=== PATIENT | male | born 1960 | race Caucasian/White ===

== ENCOUNTER 2016-12-15 15:01 | Inpatient (IN) ==
[2016-12-15 15:23] LABS: Basophils # 0.1 K/mcL (0.0-0.2); Basophils % 0.9 %; Eosinophils # 0.1 K/mcL (0.0-0.6); Eosinophils % 2.4 %; Hemoglobin 17.4 g/dL (12.9-16.9); Immature Granulocytes % 0.5 % (0-4); Lymphocytes # 1.8 K/mcL (0.6-4.6); Lymphocytes % 30.4 %; Mean Corpuscular HGB Conc 33.5 g/dL (31.6-35.5); Mean Corpuscular Hemoglobin 27.9 pg (28.0-33.3); Mean Corpuscular Volume 83.3 fL (83.0-100.0); Mean Platelet Volume 10.2 fL (9.4-12.4); Monocytes # 0.7 K/mcL (0.0-1.3); Monocytes % 11.2 %; Neutrophils # 3.2 K/mcL (1.6-8.9); Platelet Count 225 K/mcL (140-400); Red Blood Count 6.24 M/mcL (4.19-5.50); Red Cell Distribution Width 14.4 % (11.5-14.5); Segmented Neutrophils % 54.6 %
[2016-12-15 15:32] LABS: Prothrombin Time 10.5 Seconds (9.4-12.1)
[2016-12-15 15:36] LABS: BUN/Creatinine Ratio 10 (6-26); Blood Urea Nitrogen 13 mg/dL (8-26); Calcium 9.2 mg/dL (8.6-10.8); Carbon Dioxide 27 mEq/L (19-29); Chloride 103 mEq/L (98-109); Glucose 91 mg/dL (70-99); Osmolality,Calculated 288 (280-300); Potassium 4.2 mEq/L (3.5-4.5); Sodium 139 mEq/L (136-145); eGFR For African Americans > 60 (> 60); eGFR For Non-African Americans 57 (> 60)
[2016-12-15 15:37] LABS: Ethanol < 10 mg/dL (0-10)
--- NOTE | 2016-12-15 15:56 | Emergency Department Note ---
Disposition Clinical Impression: Dizziness, Paresthesias Disposition: Admitted As Inpatient Neuro HPI - General Chief Complaint: ED Neuro Symptoms/Deficit Stated Complaint: right sided weakness/tingling/numbness Time Seen by Provider: 12/15/16 15:08 Source: patient Limitations: no limitations Nursing Notes Reviewed: Yes Vital Signs Reviewed: Yes - History of Present Illness HPI Narrative: Transferred from the [place] for concern of stroke. Patient presents for evaluation of dizziness, paresthesias, right-sided deficits. Patient has previous history of stroke with right-sided deficits. Has been experiencing dizzy episodes that he is unable to relate to any specific time are associated or alleviating symptoms. States constant for the last week however symptoms now begun to resolve upon arrival in the emergency department. Paresthesias are described as all over most significant in his hands. Patient states not related to anxiety or depression. Patient states that his dizziness is worse with the shaking of his head although not specific side. No new focal deficits on exam. Patient does have decreased strength in the upper and lower right extremities with slightly abnormal finger to nose on the right. Onset of symptoms was one week ago. Patient takes Plavix daily but does not take his aspirin for the last 2 years secondary to "not having a reason to". - Related Data Home Medications: Home Medications Medication Instructions Recorded Confirmed Alfuzosin HCl [Uroxatral] 10 mg PO HS 12/15/16 12/15/16 Ascorbate Calcium [Vitamin C] 1,000 mg PO DAILY 12/15/16 12/15/16 Finasteride [Proscar] 5 mg PO HS 12/15/16 12/15/16 HYDROcodone/Acet 5/325 mg [[place] 1 tab PO TID PRN 12/15/16 12/15/16 5-325 mg] Meclizine HCl [Verticalm] 25 mg PO TID 12/15/16 12/15/16 [place]-3/Dha/Epa/Fish Oil [Fish Oil 2,000 mg PO DAILY 12/15/16 12/15/16 1,000 mg Softgel] Sertraline [Zoloft] 100 mg PO DAILY 12/15/16 12/15/16 Sildenafil Citrate [Viagra] 100 mg PO AD PRN 12/15/16 12/15/16 Testosterone Cypionate 200 mg IM Q10D 12/15/16 12/15/16 Zolpidem [Ambien] 10 mg PO HS 12/15/16 12/15/16 hydrOXYzine pamoate [HydrOXYzine 50 mg PO HS PRN 12/15/16 12/15/16 Pamoate] Allergies/Adverse Reactions: Allergies Allergy/AdvReac Type Severity Reaction Status Date / Time morphine Allergy See Verified 12/15/16 15:28 Comments tamsulosin Allergy See Verified 12/15/16 15:28 Comments Review of Systems: CONSTITUTIONAL: No weight loss, fever, chills, weakness or fatigue. HEENT: Eyes: No visual changes. Ears, Nose, Throat: No hearing loss, difficulty talking or unable to swallow. SKIN: No rash or itching. CARDIOVASCULAR: No chest pain, chest pressure or chest discomfort. No palpitations or edema. RESPIRATORY: No shortness of breath, cough or sputum. GASTROINTESTINAL: No anorexia, nausea, vomiting or diarrhea. No abdominal pain or blood. GENITOURINARY: No burning on urination or hematuria. NEUROLOGICAL: Dizziness and paresthesias to the upper extremities No headache, syncope, paralysis, ataxia.. No change in bowel or bladder control. MUSCULOSKELETAL: No muscle pain, back pain, joint pain or stiffness. All systems ED: reviewed and negative except as stated. Past Medical History - Past Medical History Medical history: Reports: CVA, hyperlipidemia, hypertension, TIA Psychiatric history: Reports: depression, other - Social History Smoking Status: Former smoker Smokeless Tobacco Status: No Alcohol use: Reports: none Drug use: Reports: none Physical Exam General appearance: NAD, conversant Eyes: anicteric sclerae, moist conjunctivae; PERRL HENT: Atraumatic; oropharynx clear with moist mucous membranes and no mucosal ulcerations Neck: Normal inspection; Trachea midline; FROM, supple Lungs: CTA, with normal respiratory effort and no intercostal retractions CV: RRR, no MRGs Abdomen: Soft, non-tender; no rebound or gaurding Extremities: No peripheral edema or extremity lymphadenopathy Skin: Normal temperature; no rash, ulcers or lesions Psych: Appropriate mood and affect Neuro: alert and oriented to person, place and time - General Limitations: no limitations General appearance: alert, in no apparent distress - Expanded Neurological Exam Speech: Present: fluid speech Cranial nerves: EOM function (II, III, IV, ): Normal, facial sensation (V): Normal, facial palsy (VII): Normal, gag reflex (IX): Normal, spinal accessory function (XI): Normal, tongue deviation (XII): Normal Cerebellar function: finger to nose: Abnormal Right, heel to kelley: Abnormal Right Cerebellar function: normal gait Motor strength - LUE: 5/5 Motor strength - RUE: 4/5 Motor strength - LLE: 5/5 Motor strength - RLE: 4/5 Sensory exam upper extremity: light touch: Normal Sensory exam lower extremity: light touch: Normal Coma Scale Eye Opening: Spontaneous Coma Scale Motor Response: Obeys Commands Coma Scale Verbal Response: Oriented Coma Scale Total: 15 - Psychiatric Psychiatric exam: Present: flat affect - Skin Skin exam: Present: warm, dry, intact Course - Consultations Consultation #1: Discussed with hospitalist. Patient accepted for further stroke workup and rule out Vital Signs Temperature 98.2 F 12/15/16 15:16 Pulse Rate 78 12/15/16 15:16 Respiratory Rate 16 12/15/16 15:16 Blood Pressure 155/86 12/15/16 15:16 O2 Sat by Pulse Oximetry 96 12/15/16 15:16 Temperature 98.8 F 12/15/16 19:10 Pulse Rate 84 12/15/16 19:10 Respiratory Rate 17 12/15/16 19:10 Blood Pressure 183/65 12/15/16 19:10 O2 Sat by Pulse Oximetry 94 12/15/16 19:10 Oxygen Delivery Oxygen Delivery Room Air Neuro Symptoms/Deficit - Lab Data Result diagrams: 12/15/16 15:13 12/15/16 15:13 Lab Results 12/15/16 12/15/16 12/15/16 Range/Units 15:13 15:13 15:13 WBC 5.9 (4.3-11.1) K/mcL RBC 6.24 H (4.19-5.50) M/mcL Hgb 17.4 H (12.9-16.9) g/dL Hct 52.0 H (37.5-50.1) % MCV 83.3 (83.0-100.0) fL MCH 27.9 L (28.0-33.3) pg MCHC 33.5 (31.6-35.5) g/dL RDW 14.4 (11.5-14.5) % Plt Count 225 (140-400) K/mcL MPV 10.2 (9.4-12.4) fL Immature Gran % 0.5 (0-4) % Seg Neutrophils % 54.6 % Lymphocytes % 30.4 % Monocytes % 11.2 % Eosinophils % 2.4 % Basophils % 0.9 % Neutrophils # 3.2 (1.6-8.9) K/mcL Lymphocytes # 1.8 (0.6-4.6) K/mcL Monocytes # 0.7 (0.0-1.3) K/mcL Eosinophils # 0.1 (0.0-0.6) K/mcL Basophils # 0.1 (0.0-0.2) K/mcL PT 10.5 (9.4-12.1) Seconds INR 1.0 Sodium 139 (136-145) mEq/L Potassium 4.2 (3.5-4.5) mEq/L Chloride 103 (98-109) mEq/L Carbon Dioxide 27 (19-29) mEq/L BUN 13 (8-26) mg/dL Creatinine 1.31 H (0.72-1.25) mg/dL Est GFR ( Amer) > 60 (> 60) Est GFR (Non-Af Amer) 57 L (> 60) BUN/Creatinine Ratio 10 (6-26) Glucose 91 (70-99) mg/dL Calculated Osmolality 288 (280-300) Calcium 9.2 (8.6-10.8) mg/dL Troponin I (0-0.03) ng/mL Urine Color (Yellow) Urine Clarity (Clear) Urine pH (5.0-8.0) pH Units Ur Specific [place] (1.010-1.025) Urine Protein (Neg-Trace) mg/dL Urine Glucose (UA) (Normal) mg/dL Urine Ketones (Negative) mg/dL Urine Blood (Negative) Urine Nitrite (Negative) Urine Bilirubin (Negative) Urine Urobilinogen (Normal) mg/dL Ur Leukocyte Esterase (Negative) Urine Microscopic RBC (0-3) per hpf Urine Microscopic WBC (0-3) per hpf Ur Squamous Epith Cells (None-Few) per lpf Urine Bacteria (None-Few) per hpf Hyaline Casts (None-Few) per lpf Ur Culture Indicated? (NO) Urine Opiates Screen (Sroeix=251) ng/mL Ur Barbiturates Screen (Xmkrbl=838) ng/mL Ur Phencyclidine Scrn (Cutoff=25) ng/mL Ur Amphetamines Screen (Shenwu=3987) ng/mL U Benzodiazepines Scrn (Tdqbqq=290) ng/mL Urine Cocaine Screen (Cutoff= 300) ng/mL U Marijuana (THC) Screen (Cutoff = 50) ng/mL Ethyl Alcohol < 10 (0-10) mg/dL 12/15/16 12/15/16 12/15/16 Range/Units 15:13 16:33 16:33 WBC (4.3-11.1) K/mcL RBC (4.19-5.50) M/mcL Hgb (12.9-16.9) g/dL Hct (37.5-50.1) % MCV (83.0-100.0) fL MCH (28.0-33.3) pg MCHC (31.6-35.5) g/dL RDW (11.5-14.5) % Plt Count (140-400) K/mcL MPV (9.4-12.4) fL Immature Gran % (0-4) % Seg Neutrophils % % Lymphocytes % % Monocytes % % Eosinophils % % Basophils % % Neutrophils # (1.6-8.9) K/mcL Lymphocytes # (0.6-4.6) K/mcL Monocytes # (0.0-1.3) K/mcL Eosinophils # (0.0-0.6) K/mcL Basophils # (0.0-0.2) K/mcL PT (9.4-12.1) Seconds INR Sodium (136-145) mEq/L Potassium (3.5-4.5) mEq/L Chloride (98-109) mEq/L Carbon Dioxide (19-29) mEq/L BUN (8-26) mg/dL Creatinine (0.72-1.25) mg/dL Est GFR ( Amer) (> 60) Est GFR (Non-Af Amer) (> 60) BUN/Creatinine Ratio (6-26) Glucose (70-99) mg/dL Calculated Osmolality (280-300) Calcium (8.6-10.8) mg/dL Troponin I 0.01 (0-0.03) ng/mL Urine Color Yellow (Yellow) Urine Clarity Clear (Clear) Urine pH 7.0 (5.0-8.0) pH Units Ur Specific [place] 1.016 (1.010-1.025) Urine Protein Negative (Neg-Trace) mg/dL Urine Glucose (UA) Normal (Normal) mg/dL Urine Ketones Negative (Negative) mg/dL Urine Blood Negative (Negative) Urine Nitrite Negative (Negative) Urine Bilirubin Negative (Negative) Urine Urobilinogen Normal (Normal) mg/dL Ur Leukocyte Esterase Small H (Negative) Urine Microscopic RBC 0-3 (0-3) per hpf Urine Microscopic WBC 0-3 (0-3) per hpf Ur Squamous Epith Cells Few (None-Few) per lpf Urine Bacteria Few (None-Few) per hpf Hyaline Casts None Seen (None-Few) per lpf Ur Culture Indicated? YES A (NO) Urine Opiates Screen Negative (Bwrkjb=218) ng/mL Ur Barbiturates Screen Negative (Vmsvqk=165) ng/mL Ur Phencyclidine Scrn Negative (Cutoff=25) ng/mL Ur Amphetamines Screen Negative (Pmtaev=0717) ng/mL U Benzodiazepines Scrn Negative (Sxrbmt=729) ng/mL Urine Cocaine Screen Negative (Cutoff= 300) ng/mL U Marijuana (THC) Screen Negative (Cutoff = 50) ng/mL Ethyl Alcohol (0-10) mg/dL TPA Checklist - LKW: 3-4.5 hrs Add. Warnings/Precautions Patient/family understanding: The patient/family members have been counseled and understood the risk, benefit , and alternatives of treatment. Attestation Statement - Attestation Attestation: I examined this patient and my medical decision-making was reviewed with the PHARMACY ASSOCIATE/PA/Advanced Practice Nurse/Resident Physician. I agree with the documented findings, disposition and treatment plan as described except to the extent set forth below. In summary 56-year-old male patient presenting with TIA symptoms. He had tingling and numbness on his right side which is subsequently resolved. CT of the head and neck shows old stroke consistent with his history of having previous strokes. Given risk of CVA we will proceed with admission and evaluation by neurology. Patient was stable at the time of admission. He has no neurological deficits beyond his baseline deficits at the time of admission. Vital stable at the time of admissions.
[2016-12-15 16:46] LABS: Bilirubin,Urine Negative (Negative); Blood,Urine Negative (Negative); Clarity,Urine Clear (Clear); Color,Urine Yellow (Yellow); Glucose,Urine (UA) Normal (Normal); Ketones,Urine Negative (Negative); Leukocyte Esterase,Urine Small (Negative); Nitrite,Urine Negative (Negative); Protein,Urine Negative (Neg-Trace); Specific Gravity,Urine 1.016 (1.010-1.025); Urobilinogen,Urine Normal (Normal)
[2016-12-15 16:48] LABS: Amphetamine Screen,Urine Negative ng/mL (Cutoff=1000); Bacteria,Urine Few per hpf (None-Few); Barbiturate Screen,Urine Negative ng/mL (Cutoff=200); Benzodiazepines Screen,Urine Negative ng/mL (Cutoff=200); Cannabinoid Screen,Urine Negative ng/mL (Cutoff = 50); Cocaine Screen,Urine Negative ng/mL (Cutoff= 300); Hyaline Casts,Urine None Seen per lpf (None-Few); Opiate Screen,Urine Negative ng/mL (Cutoff=300); Phencyclidine Screen,Urine Negative ng/mL (Cutoff=25); RBC,Urine 0-3 per hpf (0-3); Squamous Epithelial Cell,Urine Few per lpf (None-Few); WBC,Urine 0-3 per hpf (0-3)
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
[2016-12-15] MEDS ORDERED: Naloxone 0.4 MG/ML INJ IVP PRN (20:50)
[2016-12-15] MEDS ORDERED: Acetaminophen 325 MG TABLET PO PRN (20:50)
[2016-12-15] MEDS ORDERED: *HR* HYDROcodone/Acet 5/325 mg TABLET PO PRN ×2 (20:52→21:18)
[2016-12-15] MEDS ORDERED: hydrOXYzine pamoate 25 MG CAPSULE PO SCH (21:00)
[2016-12-15] MEDS ORDERED: (Alfuzosin Hcl [Uroxatral] 10 MG) PO SCH (21:00)
[2016-12-15] MEDS ORDERED: Finasteride 5 MG TABLET PO SCH (21:00)
[2016-12-15] MEDS ORDERED: *HR* LORazepam 2 MG/ML VIAL IVP PRN (21:02)
[2016-12-16 04:58] LABS: Basophils % 0.6 %; Eosinophils # 0.2 K/mcL (0.0-0.6); Eosinophils % 3.1 %; Hematocrit 50.1 % (37.5-50.1); Hemoglobin 16.3 g/dL (12.9-16.9); Immature Granulocytes % 0.5 % (0-4); Lymphocytes % 30.2 %; Mean Corpuscular HGB Conc 32.5 g/dL (31.6-35.5); Mean Corpuscular Hemoglobin 27.5 pg (28.0-33.3); Mean Corpuscular Volume 84.6 fL (83.0-100.0); Mean Platelet Volume 10.8 fL (9.4-12.4); Monocytes # 0.8 K/mcL (0.0-1.3); Monocytes % 12.5 %; Neutrophils # 3.5 K/mcL (1.6-8.9); Platelet Count 227 K/mcL (140-400); Red Blood Count 5.92 M/mcL (4.19-5.50); Red Cell Distribution Width 14.4 % (11.5-14.5); Segmented Neutrophils % 53.1 %
[2016-12-16 05:22] LABS: BUN/Creatinine Ratio 11 (6-26); Blood Urea Nitrogen 15 mg/dL (8-26); Calcium 8.9 mg/dL (8.6-10.8); Carbon Dioxide 28 mEq/L (19-29); Chloride 104 mEq/L (98-109); Chol/HDL Ratio 4.7 (0-4.9); Cholesterol 146 mg/dL (< 200); Glucose 82 mg/dL (70-99); HDL Cholesterol 31 mg/dL (40-59); LDL Cholesterol,Calculated 61 mg/dL (0-99); Osmolality,Calculated 290 (280-300); Potassium 4.2 mEq/L (3.5-4.5); Sodium 140 mEq/L (136-145); Triglycerides 269 mg/dL (< 150); eGFR For African Americans > 60 (> 60); eGFR For Non-African Americans 53 (> 60)
[2016-12-16 05:56] LABS: Folate 8.8 ng/mL (7.0-31.4)
[2016-12-16] MEDS ORDERED: *HR* Heparin 5,000 UNIT/ML VIAL SQ SCH (06:00)
[2016-12-16] MEDS ORDERED: amLODIPine 5 MG TABLET PO SCH (09:00)
[2016-12-16] MEDS ORDERED: hydrOXYzine pamoate 25 MG CAPSULE PO PRN (12:03)
--- NOTE | 2016-12-16 14:01 | Discharge Summary ---
Date of Encounter: 12/16/16 Time of Encounter: 13:59 - Discharge Diagnosis (1) Dizziness Priority: Primary Status: Acute (2) BPH (benign prostatic hyperplasia) Priority: Secondary Status: Chronic Qualifiers: Lower urinary tract symptom presence: symptoms absent Qualified Code(s): N40.0 - Benign prostatic hyperplasia without lower urinary tract symptoms (3) History of CVA (cerebrovascular accident) Priority: Secondary Status: Chronic (4) Hypertension Priority: Secondary Status: Chronic Qualifiers: Hypertension type: essential hypertension Qualified Code(s): I10 - Essential (primary) hypertension (5) Paresthesias Priority: Secondary Status: Acute - Discharge Medications Prescriptions: amLODIPine [Norvasc] 5 mg PO DAILY #30 tablet Atorvastatin [Lipitor] 40 mg PO HS #30 tablet Clopidogrel [Plavix] 75 mg PO DAILY #30 tablet Home Medications: Alfuzosin HCl [Uroxatral] 10 mg PO HS 12/15/16 [History] Ascorbate Calcium [Vitamin C] 1,000 mg PO DAILY 12/15/16 [History] Finasteride [Proscar] 5 mg PO HS 12/15/16 [History] HYDROcodone/Acet 5/325 mg [[place] 5-325 mg] 1 tab PO TID PRN 12/15/16 [History] Meclizine HCl [Verticalm] 25 mg PO TID 12/15/16 [History] [place]-3/Dha/Epa/Fish Oil [Fish Oil 1,000 mg Softgel] 2,000 mg PO DAILY 12/15/16 [History] Sertraline [Zoloft] 100 mg PO DAILY 12/15/16 [History] Sildenafil Citrate [Viagra] 100 mg PO AD PRN 12/15/16 [History] Testosterone Cypionate 200 mg IM Q10D 12/15/16 [History] Zolpidem [Ambien] 10 mg PO HS 12/15/16 [History] hydrOXYzine pamoate [HydrOXYzine Pamoate] 50 mg PO HS PRN 12/15/16 [History] Atorvastatin [Lipitor] 40 mg PO HS #30 tablet 12/16/16 [Rx] Clopidogrel [Plavix] 75 mg PO DAILY #30 tablet 12/16/16 [Rx] amLODIPine [Norvasc] 5 mg PO DAILY #30 tablet 12/16/16 [Rx] Allergies/Adverse Reactions: Allergies morphine Allergy (Verified 12/16/16 12:05) see comment tamsulosin Adverse Reaction (Verified 12/16/16 12:05) Dizziness Procedures/tests Complete & Pending: Procedures Performed prior 72 hours Category Date Time Status EV echocardiogram Routine Y 12/16/16 20:53 Completed - Notes to Outpatient Provider Consider open MRI of the brain for the patient for further evaluation as outpatient. Date of admission: 12/15/16 19:51 [facility] care physician: [facility] Consults: 12/15/16 20:51 Consult to Occupational Therapy [CONS] Routine Comment: Evaluate, develop and implement POC Reason for Consult: dizziness, h/o CVA, may need rehab or walker/cane upon DC Consult to Physical Therapy [CONS] Routine Comment: Evaluate, develop and implement POC Reason for Consult: dizziness, h/o CVA, may need rehab or walker/cane upon DC Consult to Creative Consultant [CONS] Routine Reason for SW Consult: dizziness, h/o CVA, may need rehab or walker/cane upon DC Discharging clinician: Bryant Solano Anticipated date of discharge: 12/16/16 - Patient Status Disposition: Home Health Service Condition: Fair Functional capacity at discharge: uses cane/walker Overall status at discharge: patient is progressing back to baseline - Discharge Instructions Instructions: Amlodipine (By mouth), Atorvastatin (By mouth), Clopidogrel (By mouth), Transient Ischemic Attack (DC), Ischemic Stroke (DC), Chronic Hypertension (DC), Hyperlipidemia (DC) Follow [facility]: [facility] [Primary Care Provider[facility] - 12/23/16 12:30 pm (In 1-2 weeks) - Diet and Activity Activity: as per physical therapy Diet: low fat, low cholesterol, low salt diet Hospital course: Mr. 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 He also had transient blurring of vision about 2 days back. He was hospitalized for further evaluation and CT scan of his head was done which did not show any acute stroke. MRI of the brain was recommended. However patient was unable to proceed with that despite being told that Ativan was available for him to help him with his claustrophobia. Patient's symptoms have now completely subsided. At this time, he is clinically stable for discharge and will be discharged on Plavix and statin. 2-D echocardiogram was done and did not show any PFO. Patient does have normal ejection fraction. He does need an MRI of the brain and an open MRI can be arranged for him as outpatient. He was evaluated by physical therapy and recommended placement to skilled rehabilitation. However if he does not wish to wait in the hospital for this to be arranged. As such she will be discharged on home health with home physical therapy. - Time Spent with Patient Total time spent providing and/or coordinating discharge services: Greater than 30 minutes (35 min) - Constitutional Vitals: Temp Pulse Resp BP Pulse Ox 98.5 F 58 17 142/90 97 12/16/16 07:00 12/16/16 07:00 12/16/16 07:00 12/16/16 07:00 12/16/16 07:00 General appearance: Present: cooperative, A&O X 3, pleasant, no acute distress, obese, answers questions appropriately - Neck Neck exam general surgery: Present: supple, trachea midline. Absent: lymphadenopathy - Respiratory Respiratory exam: Present: CTAB. Absent: accessory muscle use, rales, rhonchi, wheezes - Cardiovascular Cardiovascular exam: Present: RRR, +S1, +S2. Absent: diastolic murmur, gallop, rubs, systolic murmur - GI/Abdominal GI/Abdominal exam: Present: normal bowel sounds, soft, no peritoneal signs. Absent: distended, tenderness - Extremities Exam Extremities exam: Present: warm, radial pulses palpable and symetrical. Absent : calf tenderness, cyanotic, pedal edema - Neurological Exam Neurological exam: Present: CN II-XII intact, oriented X3, no focal deficits. Absent: facial droop, speech deficit Additional comments: 4/5 strength in right upper and lower extremities which is chronic
--- NOTE | 2016-12-16 14:11 | Physician Discharge Referral ---
Home Health/Hosp Referral Info Transfer to: Home Health Provider in Charge Post Discharge: PCP - Diagnosis (1) Dizziness Priority: Primary Status: Acute (2) BPH (benign prostatic hyperplasia) Priority: Secondary Status: Chronic (3) History of CVA (cerebrovascular accident) Priority: Secondary Status: Chronic (4) Hypertension Priority: Secondary Status: Chronic (5) Paresthesias Priority: Secondary Status: Acute - Respiratory Orders Smoking Cessation: Smoking cessation has been advised. For more information, call the [place] Tobacco Quit Line at 8-853-PRKG-NOW. - Diet/Nutrition Diet/Nutrition Orders: Cardiac - Activity Activity Orders: Walker - Services Needed Following services are medically necessary services: Physical Therapy, Occupational Therapy - Transfer Medications Prescriptions: Atorvastatin [Lipitor] 40 mg PO HS #30 tablet Clopidogrel [Plavix] 75 mg PO DAILY #30 tablet Home Medications: Alfuzosin HCl [Uroxatral] 10 mg PO HS 12/15/16 [History] Ascorbate Calcium [Vitamin C] 1,000 mg PO DAILY 12/15/16 [History] Finasteride [Proscar] 5 mg PO HS 12/15/16 [History] HYDROcodone/Acet 5/325 mg [[place] 5-325 mg] 1 tab PO TID PRN 12/15/16 [History] Meclizine HCl [Verticalm] 25 mg PO TID 12/15/16 [History] [place]-3/Dha/Epa/Fish Oil [Fish Oil 1,000 mg Softgel] 2,000 mg PO DAILY 12/15/16 [History] Sertraline [Zoloft] 100 mg PO DAILY 12/15/16 [History] Sildenafil Citrate [Viagra] 100 mg PO AD PRN 12/15/16 [History] Testosterone Cypionate 200 mg IM Q10D 12/15/16 [History] Zolpidem [Ambien] 10 mg PO HS 12/15/16 [History] hydrOXYzine pamoate [HydrOXYzine Pamoate] 50 mg PO HS PRN 12/15/16 [History] Atorvastatin [Lipitor] 40 mg PO HS #30 tablet 12/16/16 [Rx] Clopidogrel [Plavix] 75 mg PO DAILY #30 tablet 12/16/16 [Rx] Allergies/Adverse Reactions: Allergies morphine Allergy (Verified 12/16/16 12:05) see comment tamsulosin Adverse Reaction (Verified 12/16/16 12:05) Dizziness Certification: Further, I certify that my clinical findings support that this patient is homebound (i.e. absences from home require considerable and taxing effort and are for medical reasons or uatsdin services or infrequently or short duration when for other reasons) because: Homebound Reason: Patient requires assistance of a person or device to safely leave home Attestation: My signature below is to certify that this patient is under my care and that I, or nurse practitioner, or a physician's infertility medical assistant working with me, has a face-to -face encounter with this patient.
[2016-12-16 15:07] VITALS: BP 155/86
== END 2016-12-16 18:45 | disposition home health service (06) | DRG 149 ==
LOC: 2NENU 15:01 → EMEROO 15:01 → 2NENU 18:49
PROVIDERS: ADMIT Family Medicine; ATTEND Internal Medicine